=== PATIENT | male | born 1975 | race Caucasian/White ===

== ENCOUNTER 2018-12-23 18:00 | Emergency (ER) | payer OTHER ==
[~2018-12-23] VITALS: Ht 182.9 cm; Wt 90.7 kg
[2018-12-23 18:54] LABS: BASOPHILS ABSOLUTE AUTO 0.08 K/mm3 (0.00-0.23); BASOPHILS PERCENT AUTO 1 % (0-2); EOSINOPHILS ABSOLUTE AUTO 0.31 K/mm3 (0.00-0.68); EOSINOPHILS PERCENT AUTO 3 % (0-6); Hematocrit 45.5 % (37.0-53.0); Hemoglobin 15.6 g/dL (13.5-17.5); IMMATURE GRAN ABSOLUTE AUTO 0.06 K/mm3 (0.00-0.10); IMMATURE GRAN PERCENT AUTO 1 % (0-1); LYMPHOCYTES ABSOLUTE AUTO 3.97 K/mm3 (0.84-5.20); LYMPHOCYTES PERCENT AUTO 36 % (21-46); MONOCYTES ABSOLUTE AUTO 0.68 K/mm3 (0.16-1.47); MONOCYTES PERCENT AUTO 6 % (4-13); Mean Corpuscular HGB 30.1 pg (26.0-34.0); Mean Corpuscular HGB Conc 34.3 g/dL (31.5-36.5); Mean Corpuscular Volume 88 fL (80-100); Mean Platelet Volume 9.6 fL (9.1-12.4); NEUTROPHILS ABSOLUTE AUTO 5.92 K/mm3 (1.96-9.15); NEUTROPHILS PERCENT AUTO 54 % (41-73); Platelet Count 405 K/mm3 (150-400); RDW Coefficient Variation 13.3 % (11.7-14.2); RDW Standard Deviation 42.8 fL (35.1-46.3); Red Blood Cell Count 5.18 M/mm3 (4.30-5.90); White Blood Cell Count 11.02 K/mm3 (4.00-11.30)
[2018-12-23 20:13] LABS: Alanine Aminotransfer (ALT/SGP 94 U/L (12-78); Albumin/Globulin Ratio 0.8 (0.8-1.8); Alk Phos 380 U/L (50-136); Anion Gap 9 mmol/L (6-16); Aspartate Aminotrans (AST/SGOT 47 U/L (12-37); Bilirubin, Total 0.5 mg/dL (0.1-1.0); Blood Urea Nitrogen 23 mg/dL (8-24); Bun/Creatinine Ratio 19.5 (12.0-20.0); CO2, Blood 25 mmol/L (21-32); Calcium, Blood 9.1 mg/dL (8.5-10.1); Chloride, Blood 104 mmol/L (98-108); Creatinine, Blood 1.18 mg/dL (0.60-1.20); Globulin, Blood 4.8 g/dL (2.2-4.0); Glomerular Filtration Rate >60 (60-); Glucose, Blood 107 mg/dL (70-99); Sodium, Blood 138 mmol/L (136-145); Total Protein, Blood 8.8 g/dL (6.4-8.2)
[2018-12-23] MEDS ORDERED: GABA300 (21:43)
[2018-12-23] MEDS ORDERED: CYCL10 (21:44)
[2018-12-23] MEDS ORDERED: OMEPRAZOLE20 MG (21:44)
[2018-12-23] MEDS ORDERED: Lopressor 25 mg25 MG (21:44)
[2018-12-23] MEDS ORDERED: Aspir 8181 MG (21:44)
== END 2018-12-23 23:20 | disposition home or self-care (01) ==
LOC: ER 18:00
PROVIDERS: Physician Assistant
DX: R68.84 Jaw pain (principal); G89.29 Other chronic pain; J02.9 Acute pharyngitis, unspecified; Z79.899 Other long term (current) drug therapy; Z79.82 Long term (current) use of aspirin
CPT/HCPCS: 36415; 71046; 80053; 85025; 85651; 93005; 93010; 99284-25

== ENCOUNTER → 2019-01-31 | Outpatient (CLI) | payer OTHER ==
[~2019-01-31] MED LIST: Aspir 8181 MG; CYCL10; GABA300; Lopressor 25 mg25 MG; OMEPRAZOLE20 MG
[2019-01-31 13:21] LABS: Hematocrit 39.6 % (37.0-53.0); Hemoglobin 14.1 g/dL (13.5-17.5); Mean Corpuscular HGB 30.7 pg (26.0-34.0); Mean Corpuscular HGB Conc 35.6 g/dL (31.5-36.5); Mean Corpuscular Volume 86 fL (80-100); RDW Coefficient Variation 12.8 % (11.7-14.2); RDW Standard Deviation 40.2 fL (35.1-46.3); Red Blood Cell Count 4.59 M/mm3 (4.30-5.90); White Blood Cell Count 8.73 K/mm3 (4.00-11.30)
[2019-01-31 13:23] LABS: Alanine Aminotransfer (ALT/SGP 81 U/L (12-78); Albumin, Blood 3.7 g/dL (3.4-5.0); Albumin/Globulin Ratio 0.9 (0.8-1.8); Alk Phos 302 U/L (40-126); Anion Gap 11 mmol/L (6-16); Aspartate Aminotrans (AST/SGOT 50 U/L (12-37); Bilirubin, Total 0.5 mg/dL (0.1-1.0); Blood Urea Nitrogen 16 mg/dL (8-24); CO2, Blood 23 mmol/L (21-32); Calcium, Blood 9.4 mg/dL (8.5-10.1); Chloride, Blood 104 mmol/L (98-108); Globulin, Blood 4.1 g/dL (2.2-4.0); Glomerular Filtration Rate >60 (60-); Glucose, Blood 113 mg/dL (70-99); Potassium, Blood 4.4 mmol/L (3.5-5.5); Sodium, Blood 138 mmol/L (136-145); Total Protein, Blood 7.8 g/dL (6.4-8.2)
[2019-01-31 14:14] LABS: Mean Platelet Volume 9.4 fL (9.1-12.4); Platelet Count 371 K/mm3 (150-400)
[2019-01-31 14:20] LABS: BAND PERCENT MAN 2 % (0-8); BASOPHILS PERCENT MAN 0 % (0-2); EOSINOPHILS ABSOLUTE MAN 0.61 K/mm3 (0.00-0.68); EOSINOPHILS PERCENT MAN 7 % (0-6); LYMPHOCYTES ABSOLUTE MAN 3.05 K/mm3 (0.84-5.20); LYMPHOCYTES PERCENT MAN 35 % (21-46); MONOCYTES ABSOLUTE MAN 0.26 K/mm3 (0.16-1.47); MONOCYTES PERCENT MAN 3 % (4-13); SEG NEUTROPHILS PERCENT MAN 53 % (41-73); TOTAL CELLS COUNTED 100
== END ==
LOC: LAB SHORT 13:06 → LAB EV 13:06
PROVIDERS: Emergency Medicine
DX: R50.9 Fever, unspecified (principal)
CPT/HCPCS: 80053; 85025; 87040

== ENCOUNTER 2021-01-02 07:53 | Day surgery (SDC) | payer OTHER ==
--- NOTE | 2021-01-02 08:32 | NUR ---
REPORT FROM YAZAN PINEDA.PT REPORTS HAVING YOGURT AT 0700 THIS AM. 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 PHILIP TO CARENE.NKA.ROOM AIR.A&OX4. DENIES ANY NEW CHEST PAIN.
--- NOTE | 2021-01-02 09:02 | NUR ---
Patient up to Ambulate independently. Gait steady. Discharge instructions reviewed with patient. Patient verbalizes understanding. Copy given to patient to take home.AMBULATORY AT DISCHARGE.
== END 2021-01-02 23:53 | disposition home or self-care (01) ==
LOC: ORSCMMR 07:53 → ORD 07:53 → CT 07:53 → ORSCMMR 07:54 → CT 08:00 → ORSCMMR 23:53
DX: I20.8 Other forms of angina pectoris (principal); R00.2 Palpitations; I49.3 Ventricular premature depolarization; F12.90 Cannabis use, unspecified, uncomplicated; F41.9 Anxiety disorder, unspecified
CPT/HCPCS: 75574; Q9967

== ENCOUNTER → 2021-04-09 | Outpatient (CLI) | payer OTHER | END | disposition home or self-care (01) | LOC: LAB 16:56 → LAB SHORT 16:56 | DX: R74.8 Abnormal levels of other serum enzymes (principal) | CPT/HCPCS: 85651; 86140 ==

== ENCOUNTER → 2021-04-11 | Outpatient (CLI) | payer OTHER ==
[2021-04-11 18:09] LABS: Glutamyl Transpeptidase, GGT 700 U/L (15-85); Lactate Dehydrogenase (Ld),Bld 210 U/L (100-240)
[2021-04-12 18:09] LABS: ANA DIRECT Negative (Negative); ANTI-DNA (DS) AB QN 3 IU/mL (0-9); RNP ANTIBODIES <0.2 AI (0.0-0.9); SJOGREN'S ANTI-SS-A <0.2 AI (0.0-0.9); SJOGREN'S ANTI-SS-B <0.2 AI (0.0-0.9); SMITH ANTIBODIES <0.2 AI (0.0-0.9)
== END | disposition home or self-care (01) ==
LOC: LAB SHORT 16:07 → LAB 16:07
PROVIDERS: Nurse Practitioner Family
DX: R74.8 Abnormal levels of other serum enzymes (principal)
CPT/HCPCS: 82105; 82977; 83615; 86225; 86235

== ENCOUNTER 2021-04-24 02:40 | Emergency (ER) | payer OTHER ==
[~2021-04-24] VITALS: Ht 182.9 cm; Wt 77.1 kg
[2021-04-24 03:22] LABS: BASOPHILS ABSOLUTE AUTO 0.07 K/mm3 (0.00-0.23); BASOPHILS PERCENT AUTO 0 % (0-2); EOSINOPHILS ABSOLUTE AUTO 0.03 K/mm3 (0.00-0.68); EOSINOPHILS PERCENT AUTO 0 % (0-6); Hematocrit 49.3 % (37.0-53.0); Hemoglobin 17.2 g/dL (13.5-17.5); IMMATURE GRAN PERCENT AUTO 1 % (0-1); LYMPHOCYTES ABSOLUTE AUTO 1.27 K/mm3 (0.84-5.20); LYMPHOCYTES PERCENT AUTO 8 % (21-46); MONOCYTES ABSOLUTE AUTO 1.02 K/mm3 (0.16-1.47); MONOCYTES PERCENT AUTO 6 % (4-13); Mean Corpuscular HGB 30.6 pg (26.0-34.0); Mean Corpuscular HGB Conc 34.9 g/dL (31.5-36.5); Mean Corpuscular Volume 88 fL (80-100); Mean Platelet Volume 9.7 fL (9.1-12.4); NEUTROPHILS ABSOLUTE AUTO 14.37 K/mm3 (1.96-9.15); NEUTROPHILS PERCENT AUTO 85 % (41-73); Platelet Count 490 K/mm3 (150-400); RDW Standard Deviation 38.5 fL (35.1-46.3); Red Blood Cell Count 5.62 M/mm3 (4.30-5.90); White Blood Cell Count 16.86 K/mm3 (4.00-11.30)
[2021-04-24 03:34] LABS: Alanine Aminotransfer (ALT/SGP 73 U/L (12-78); Albumin, Blood 4.3 g/dL (3.4-5.0); Albumin/Globulin Ratio 0.8 (0.8-1.8); Alk Phos 514 U/L (50-136); Anion Gap 11 mmol/L (6-16); Aspartate Aminotrans (AST/SGOT 45 U/L (12-37); Blood Urea Nitrogen 13 mg/dL (8-24); Bun/Creatinine Ratio 17.3 (12.0-20.0); CO2, Blood 25 mmol/L (21-32); Calcium, Blood 10.4 mg/dL (8.5-10.1); Chloride, Blood 100 mmol/L (98-108); Creatinine, Blood 0.75 mg/dL (0.60-1.20); Globulin, Blood 5.2 g/dL (2.2-4.0); Glomerular Filtration Rate >60 (60-); Glucose, Blood 180 mg/dL (70-99); Potassium, Blood 3.6 mmol/L (3.5-5.5); Sodium, Blood 136 mmol/L (136-145); Total Protein, Blood 9.5 g/dL (6.4-8.2)
[2021-04-24] MEDS ORDERED: ONDA4ODT MM (04:30)
== END 2021-04-24 04:48 | disposition home or self-care (01) ==
LOC: ER 02:40
PROVIDERS: Student in an Organized Health Care Education/Training Program
DX: R11.2 Nausea with vomiting, unspecified (principal); D72.829 Elevated white blood cell count, unspecified
CPT/HCPCS: 36415; 80053; 83690; 85025; 96374; 99284-25; J1790

== ENCOUNTER 2021-06-12 03:08 | Day surgery (SDC) | payer OTHER ==
[~2021-06-12 03:08] MED LIST changes: +ONDA4ODT MM; +OXAYDO5 M1 PO
[2021-06-12] MEDS ORDERED: Ultram50 MG PO (13:18)
[2021-06-12] MEDS ORDERED: HYDROCODONE-AC1 EA15 PO (15:41)
[2021-06-12] MEDS ORDERED: INVANZ INJ (15:42)
[2021-06-12] MEDS ORDERED: Gabapentin600 MG PO (15:53)
[2021-06-12] MEDS ORDERED: ACET500 PO (15:54)
[2021-06-12 17:05] LABS: BASOPHILS ABSOLUTE AUTO 0.08 K/mm3 (0.00-0.23); BASOPHILS PERCENT AUTO 1 % (0-2); EOSINOPHILS ABSOLUTE AUTO 0.52 K/mm3 (0.00-0.68); EOSINOPHILS PERCENT AUTO 5 % (0-6); Hematocrit 38.1 % (37.0-53.0); IMMATURE GRAN ABSOLUTE AUTO 0.03 K/mm3 (0.00-0.10); IMMATURE GRAN PERCENT AUTO 0 % (0-1); LYMPHOCYTES ABSOLUTE AUTO 3.24 K/mm3 (0.84-5.20); LYMPHOCYTES PERCENT AUTO 33 % (21-46); MONOCYTES ABSOLUTE AUTO 0.73 K/mm3 (0.16-1.47); MONOCYTES PERCENT AUTO 8 % (4-13); Mean Corpuscular HGB 30.8 pg (26.0-34.0); Mean Corpuscular HGB Conc 34.1 g/dL (31.5-36.5); Mean Corpuscular Volume 90 fL (80-100); Mean Platelet Volume 11.8 fL (9.1-12.4); NEUTROPHILS ABSOLUTE AUTO 5.13 K/mm3 (1.96-9.15); NEUTROPHILS PERCENT AUTO 53 % (41-73); Platelet Count 277 K/mm3 (150-400); RDW Coefficient Variation 13.5 % (11.7-14.2); RDW Standard Deviation 45.1 fL (35.1-46.3); Red Blood Cell Count 4.22 M/mm3 (4.30-5.90); White Blood Cell Count 9.73 K/mm3 (4.00-11.30)
[2021-06-12 17:33] LABS: Alanine Aminotransfer (ALT/SGP 144 U/L (12-78); Albumin, Blood 3.3 g/dL (3.4-5.0); Albumin/Globulin Ratio 0.9 (0.8-1.8); Alk Phos 536 U/L (50-136); Anion Gap 6 mmol/L (6-16); Aspartate Aminotrans (AST/SGOT 82 U/L (12-37); Bilirubin, Total 0.4 mg/dL (0.1-1.0); Blood Urea Nitrogen 11 mg/dL (8-24); Bun/Creatinine Ratio 16.9 (12.0-20.0); CO2, Blood 28 mmol/L (21-32); Calcium, Blood 8.9 mg/dL (8.5-10.1); Chloride, Blood 105 mmol/L (98-108); Creatinine, Blood 0.65 mg/dL (0.60-1.20); Globulin, Blood 3.7 g/dL (2.2-4.0); Glomerular Filtration Rate >60 (60-); Glucose, Blood 91 mg/dL (70-99); Potassium, Blood 4.2 mmol/L (3.5-5.5); Sodium, Blood 139 mmol/L (136-145)
== END 2021-06-12 16:05 | disposition home or self-care (01) ==
LOC: ATC 03:08
PROVIDERS: Internal Medicine Infectious Disease
DX: M27.2 Inflammatory conditions of jaws (principal)
CPT/HCPCS: 36569; 80053; 85025; 85651; 86140; 96365; C1751; J1335

== ENCOUNTER 2021-06-12 13:02 | Emergency (ER) | payer OTHER ==
[~2021-06-12] VITALS: Ht 182.9 cm; Wt 81.7 kg
[2021-06-12] MEDS ORDERED: Ultram50 MG PO (13:18)
[2021-06-12] MEDS ORDERED: HYDROCODONE-AC1 EA15 PO (15:41)
[2021-06-12] MEDS ORDERED: INVANZ INJ (15:42)
[2021-06-12] MEDS ORDERED: Gabapentin600 MG PO (15:53)
[2021-06-12] MEDS ORDERED: ACET500 PO (15:54)
== END 2021-06-12 13:27 | disposition home or self-care (01) ==
LOC: ER 13:02
DX: K08.89 Other specified disorders of teeth and supporting structures (principal); G89.29 Other chronic pain
CPT/HCPCS: 99283; A9270

== ENCOUNTER 2021-06-13 01:22 | Day surgery (SDC) | payer OTHER ==
[~2021-06-13 01:22] MED LIST changes: +ACET500 PO; +Gabapentin600 MG PO; +HYDROCODONE-AC1 EA15 PO; +INVANZ INJ; +Ultram50 MG PO
[2021-06-14] MEDS ORDERED: OXYC5 PO (14:27)
== END 2021-06-13 11:25 | disposition home or self-care (01) ==
LOC: ATC 01:22
DX: M27.2 Inflammatory conditions of jaws (principal); E78.00 Pure hypercholesterolemia, unspecified; M27.69 Other endosseous dental implant failure
CPT/HCPCS: 96365; J1335

== ENCOUNTER 2021-06-14 05:29 | Day surgery (SDC) | payer OTHER ==
[2021-06-14] MEDS ORDERED: OXYC5 PO (14:27)
== END 2021-06-14 14:47 | disposition home or self-care (01) ==
LOC: ATC 05:29
DX: M27.2 Inflammatory conditions of jaws (principal)
CPT/HCPCS: J1335

== ENCOUNTER 2021-06-15 10:23 | Day surgery (SDC) | payer OTHER ==
[~2021-06-15 10:23] MED LIST changes: +OXYC5 PO
== END 2021-06-15 11:01 | disposition home or self-care (01) ==
LOC: ATC 10:23
DX: M27.2 Inflammatory conditions of jaws (principal); M27.69 Other endosseous dental implant failure
CPT/HCPCS: J1335

== ENCOUNTER 2021-06-16 10:34 | Day surgery (SDC) | payer OTHER | END 2021-06-16 11:10 | disposition home or self-care (01) | LOC: ATC 10:34 | DX: M27.2 Inflammatory conditions of jaws (principal) | CPT/HCPCS: J1335 ==

== ENCOUNTER 2021-06-17 14:47 | Day surgery (SDC) | payer OTHER | END 2021-06-17 14:49 | disposition home or self-care (01) | LOC: ATC 14:47 | DX: M27.2 Inflammatory conditions of jaws (principal) | CPT/HCPCS: J1335 ==

== ENCOUNTER 2021-06-18 04:10 | Day surgery (SDC) | payer OTHER ==
[2021-06-18 15:54] LABS: BASOPHILS PERCENT AUTO 1 % (0-2); EOSINOPHILS ABSOLUTE AUTO 0.38 K/mm3 (0.00-0.68); EOSINOPHILS PERCENT AUTO 4 % (0-6); Hematocrit 42.5 % (37.0-53.0); Hemoglobin 14.3 g/dL (13.5-17.5); IMMATURE GRAN ABSOLUTE AUTO 0.03 K/mm3 (0.00-0.10); IMMATURE GRAN PERCENT AUTO 0 % (0-1); LYMPHOCYTES ABSOLUTE AUTO 3.16 K/mm3 (0.84-5.20); LYMPHOCYTES PERCENT AUTO 32 % (21-46); MONOCYTES ABSOLUTE AUTO 0.91 K/mm3 (0.16-1.47); MONOCYTES PERCENT AUTO 9 % (4-13); Mean Corpuscular HGB 30.6 pg (26.0-34.0); Mean Corpuscular HGB Conc 33.6 g/dL (31.5-36.5); Mean Corpuscular Volume 91 fL (80-100); Mean Platelet Volume 10.8 fL (9.1-12.4); NEUTROPHILS ABSOLUTE AUTO 5.41 K/mm3 (1.96-9.15); NEUTROPHILS PERCENT AUTO 54 % (41-73); Platelet Count 337 K/mm3 (150-400); RDW Coefficient Variation 13.5 % (11.7-14.2); RDW Standard Deviation 45.3 fL (35.1-46.3); Red Blood Cell Count 4.67 M/mm3 (4.30-5.90); White Blood Cell Count 9.99 K/mm3 (4.00-11.30)
[2021-06-18 16:05] LABS: Alanine Aminotransfer (ALT/SGP 133 U/L (12-78); Albumin, Blood 3.5 g/dL (3.4-5.0); Albumin/Globulin Ratio 0.9 (0.8-1.8); Alk Phos 558 U/L (50-136); Anion Gap 7 mmol/L (6-16); Aspartate Aminotrans (AST/SGOT 66 U/L (12-37); Bilirubin, Total 0.4 mg/dL (0.1-1.0); Blood Urea Nitrogen 11 mg/dL (8-24); Bun/Creatinine Ratio 16.3 (12.0-20.0); CO2, Blood 28 mmol/L (21-32); Calcium, Blood 9.2 mg/dL (8.5-10.1); Chloride, Blood 104 mmol/L (98-108); Creatinine, Blood 0.67 mg/dL (0.60-1.20); Glomerular Filtration Rate >60 (60-); Glucose, Blood 90 mg/dL (70-99); Potassium, Blood 4.3 mmol/L (3.5-5.5); Sodium, Blood 139 mmol/L (136-145); Total Protein, Blood 7.5 g/dL (6.4-8.2)
[2021-06-18 17:15] LABS: International Normalized Ratio 0.99; Prothrombin Time Results 10.4 Sec (9.7-11.5)
== END 2021-06-18 15:00 | disposition home or self-care (01) ==
LOC: ATC 04:10
PROVIDERS: Internal Medicine Gastroenterology; Internal Medicine Infectious Disease
DX: M27.2 Inflammatory conditions of jaws (principal); D50.0 Iron deficiency anemia secondary to blood loss (chronic)
CPT/HCPCS: 80053; 85025; 85610; 85730; J1335

== ENCOUNTER 2021-06-20 00:20 | Day surgery (SDC) | payer OTHER | END 2021-06-20 14:31 | disposition home or self-care (01) | LOC: ATC 00:20 | DX: M27.2 Inflammatory conditions of jaws (principal) | CPT/HCPCS: 96365; J1335 ==

== ENCOUNTER 2021-06-21 00:21 | Day surgery (SDC) | payer OTHER | END 2021-06-21 14:40 | disposition home or self-care (01) | LOC: ATC 00:21 | DX: M27.2 Inflammatory conditions of jaws (principal) | CPT/HCPCS: J1335 ==

== ENCOUNTER 2021-06-22 10:35 | Day surgery (SDC) | payer OTHER | END 2021-06-22 10:56 | disposition home or self-care (01) | LOC: ATC 10:35 | DX: M27.2 Inflammatory conditions of jaws (principal) | CPT/HCPCS: 96374; J1335 ==

== ENCOUNTER 2021-06-23 10:49 | Day surgery (SDC) | payer OTHER | END 2021-06-23 12:00 | disposition home or self-care (01) | LOC: ATC 10:49 | DX: M27.2 Inflammatory conditions of jaws (principal); M27.69 Other endosseous dental implant failure | CPT/HCPCS: 96365; J1335 ==

== ENCOUNTER 2021-06-25 04:51 | Day surgery (SDC) | payer OTHER | END 2021-06-25 14:22 | disposition home or self-care (01) | LOC: ATC 04:51 | DX: M27.2 Inflammatory conditions of jaws (principal); M27.69 Other endosseous dental implant failure | CPT/HCPCS: J1335 ==

== ENCOUNTER 2021-06-27 01:44 | Day surgery (SDC) | payer OTHER ==
[2021-07-17] MEDS ORDERED: BUPRENORPHINE HC2 MG SL (14:47)
[2021-09-24] MEDS ORDERED: GABA300 PO (14:54)
[2021-09-24] MEDS ORDERED: PANT40 PO (14:55)
[2021-09-24] MEDS ORDERED: UNK ANTIBIOTIC PO (14:56)
[2021-10-30] MEDS ORDERED: Norco 5-325 Ta1 EACH PO (09:44)
[2021-11-05] MEDS ORDERED: [UNRECOGNIZED DRUG - OTHER] PO (11:39)
== END 2021-06-27 14:38 | disposition home or self-care (01) ==
LOC: ATC 01:44
DX: M27.2 Inflammatory conditions of jaws (principal); M27.69 Other endosseous dental implant failure
CPT/HCPCS: 96365; J1335

== ENCOUNTER 2021-06-28 05:35 | Day surgery (SDC) | payer OTHER | END 2021-06-28 14:47 | disposition home or self-care (01) | LOC: ATC 05:35 | DX: M27.2 Inflammatory conditions of jaws (principal); E78.00 Pure hypercholesterolemia, unspecified | CPT/HCPCS: 96365 ==

== ENCOUNTER 2021-06-29 10:26 | Day surgery (SDC) | payer OTHER | END 2021-06-29 10:55 | disposition home or self-care (01) | LOC: ATC 10:26 | DX: M27.2 Inflammatory conditions of jaws (principal); E78.00 Pure hypercholesterolemia, unspecified | CPT/HCPCS: J1335 ==

== ENCOUNTER 2021-06-30 10:32 | Day surgery (SDC) | payer OTHER ==
[2021-07-17] MEDS ORDERED: BUPRENORPHINE HC2 MG SL (14:47)
== END 2021-06-30 11:14 | disposition home or self-care (01) ==
LOC: ATC 10:32
DX: M27.2 Inflammatory conditions of jaws (principal); M27.69 Other endosseous dental implant failure
CPT/HCPCS: 96365; J1335

== ENCOUNTER 2021-07-01 01:18 | Day surgery (SDC) | payer OTHER | END 2021-07-01 14:22 | disposition home or self-care (01) | LOC: ATC 01:18 | DX: M27.2 Inflammatory conditions of jaws (principal) | CPT/HCPCS: J1335 ==

== ENCOUNTER 2021-07-03 04:55 | Day surgery (SDC) | payer OTHER ==
[2021-07-03 15:38] LABS: BASOPHILS ABSOLUTE AUTO 0.09 K/mm3 (0.00-0.23); BASOPHILS PERCENT AUTO 1 % (0-2); EOSINOPHILS ABSOLUTE AUTO 0.44 K/mm3 (0.00-0.68); EOSINOPHILS PERCENT AUTO 5 % (0-6); Hematocrit 40.4 % (37.0-53.0); Hemoglobin 13.6 g/dL (13.5-17.5); IMMATURE GRAN ABSOLUTE AUTO 0.03 K/mm3 (0.00-0.10); IMMATURE GRAN PERCENT AUTO 0 % (0-1); LYMPHOCYTES ABSOLUTE AUTO 3.74 K/mm3 (0.84-5.20); LYMPHOCYTES PERCENT AUTO 42 % (21-46); MONOCYTES ABSOLUTE AUTO 0.57 K/mm3 (0.16-1.47); MONOCYTES PERCENT AUTO 6 % (4-13); Mean Corpuscular HGB 30.5 pg (26.0-34.0); Mean Corpuscular HGB Conc 33.7 g/dL (31.5-36.5); Mean Corpuscular Volume 91 fL (80-100); Mean Platelet Volume 10.8 fL (9.1-12.4); NEUTROPHILS PERCENT AUTO 45 % (41-73); Platelet Count 348 K/mm3 (150-400); RDW Coefficient Variation 12.9 % (11.7-14.2); RDW Standard Deviation 42.7 fL (35.1-46.3); Red Blood Cell Count 4.46 M/mm3 (4.30-5.90); White Blood Cell Count 8.87 K/mm3 (4.00-11.30)
[2021-07-03 16:22] LABS: Alanine Aminotransfer (ALT/SGP 134 U/L (12-78); Albumin, Blood 3.5 g/dL (3.4-5.0); Albumin/Globulin Ratio 0.9 (0.8-1.8); Alk Phos 498 U/L (50-136); Anion Gap 6 mmol/L (6-16); Aspartate Aminotrans (AST/SGOT 86 U/L (12-37); Bilirubin, Total 0.4 mg/dL (0.1-1.0); Blood Urea Nitrogen 14 mg/dL (8-24); CO2, Blood 27 mmol/L (21-32); Chloride, Blood 106 mmol/L (98-108); Creatinine, Blood 0.74 mg/dL (0.60-1.20); Globulin, Blood 3.9 g/dL (2.2-4.0); Glomerular Filtration Rate >60 (60-); Glucose, Blood 112 mg/dL (70-99); Potassium, Blood 4.3 mmol/L (3.5-5.5); Sodium, Blood 139 mmol/L (136-145); Total Protein, Blood 7.4 g/dL (6.4-8.2)
== END 2021-07-03 14:34 | disposition home or self-care (01) ==
LOC: ATC 04:55
PROVIDERS: Internal Medicine Infectious Disease
DX: M27.2 Inflammatory conditions of jaws (principal)
CPT/HCPCS: 80053; 85025; 96365; J1335

== ENCOUNTER 2021-07-04 04:59 | Day surgery (SDC) | payer OTHER | END 2021-07-04 12:05 | disposition home or self-care (01) | LOC: ATC 04:59 | DX: M27.2 Inflammatory conditions of jaws (principal); M27.69 Other endosseous dental implant failure | CPT/HCPCS: 96365; J1335 ==

== ENCOUNTER 2021-07-07 04:52 | Day surgery (SDC) | payer OTHER | END 2021-07-07 11:07 | disposition home or self-care (01) | LOC: ATC 04:52 | DX: M27.2 Inflammatory conditions of jaws (principal); M27.69 Other endosseous dental implant failure | CPT/HCPCS: J1335 ==

== ENCOUNTER 2021-07-08 03:56 | Day surgery (SDC) | payer OTHER | END 2021-07-08 14:41 | disposition home or self-care (01) | LOC: ATC 03:56 | DX: M27.2 Inflammatory conditions of jaws (principal) | CPT/HCPCS: J1335 ==

== ENCOUNTER 2021-07-10 01:35 | Day surgery (SDC) | payer OTHER ==
[2021-07-10 15:15] LABS: BASOPHILS ABSOLUTE AUTO 0.08 K/mm3 (0.00-0.23); BASOPHILS PERCENT AUTO 1 % (0-2); EOSINOPHILS ABSOLUTE AUTO 0.53 K/mm3 (0.00-0.68); EOSINOPHILS PERCENT AUTO 5 % (0-6); Hematocrit 39.7 % (37.0-53.0); Hemoglobin 13.8 g/dL (13.5-17.5); IMMATURE GRAN ABSOLUTE AUTO 0.03 K/mm3 (0.00-0.10); IMMATURE GRAN PERCENT AUTO 0 % (0-1); LYMPHOCYTES ABSOLUTE AUTO 3.96 K/mm3 (0.84-5.20); LYMPHOCYTES PERCENT AUTO 38 % (21-46); MONOCYTES ABSOLUTE AUTO 0.75 K/mm3 (0.16-1.47); MONOCYTES PERCENT AUTO 7 % (4-13); Mean Corpuscular HGB 31.2 pg (26.0-34.0); Mean Corpuscular HGB Conc 34.8 g/dL (31.5-36.5); Mean Corpuscular Volume 90 fL (80-100); Mean Platelet Volume 10.3 fL (9.1-12.4); NEUTROPHILS ABSOLUTE AUTO 5.09 K/mm3 (1.96-9.15); NEUTROPHILS PERCENT AUTO 49 % (41-73); Platelet Count 325 K/mm3 (150-400); RDW Coefficient Variation 12.7 % (11.7-14.2); RDW Standard Deviation 42.1 fL (35.1-46.3); Red Blood Cell Count 4.42 M/mm3 (4.30-5.90); White Blood Cell Count 10.44 K/mm3 (4.00-11.30)
[2021-07-10 15:39] LABS: Alanine Aminotransfer (ALT/SGP 95 U/L (12-78); Albumin, Blood 3.4 g/dL (3.4-5.0); Albumin/Globulin Ratio 0.9 (0.8-1.8); Alk Phos 413 U/L (50-136); Anion Gap 5 mmol/L (6-16); Aspartate Aminotrans (AST/SGOT 58 U/L (12-37); Bilirubin, Total 0.4 mg/dL (0.1-1.0); Blood Urea Nitrogen 13 mg/dL (8-24); Bun/Creatinine Ratio 18.4 (12.0-20.0); C-REACTIVE PROTEIN, EXT RANGE 0.739 mg/dL (0.000-0.300); CO2, Blood 29 mmol/L (21-32); Calcium, Blood 8.7 mg/dL (8.5-10.1); Chloride, Blood 104 mmol/L (98-108); Creatinine, Blood 0.71 mg/dL (0.60-1.20); Globulin, Blood 3.9 g/dL (2.2-4.0); Glomerular Filtration Rate >60 (60-); Glucose, Blood 84 mg/dL (70-99); Potassium, Blood 4.1 mmol/L (3.5-5.5); Sodium, Blood 138 mmol/L (136-145); Total Protein, Blood 7.3 g/dL (6.4-8.2)
[2021-07-17] MEDS ORDERED: BUPRENORPHINE HC2 MG SL (14:47)
== END 2021-07-10 14:50 | disposition home or self-care (01) ==
LOC: ATC 01:35
PROVIDERS: Internal Medicine Infectious Disease
DX: M27.2 Inflammatory conditions of jaws (principal); M27.69 Other endosseous dental implant failure
CPT/HCPCS: 80053; 85025; 85651; 86140; 96365; J1335

== ENCOUNTER 2021-07-11 01:05 | Day surgery (SDC) | payer OTHER | END 2021-07-11 14:51 | disposition home or self-care (01) | LOC: ATC 01:05 | DX: M27.2 Inflammatory conditions of jaws (principal); Z79.899 Other long term (current) drug therapy | CPT/HCPCS: 96365; J1335 ==

== ENCOUNTER 2021-07-12 05:41 | Day surgery (SDC) | payer OTHER | END 2021-07-12 14:45 | disposition home or self-care (01) | LOC: ATC 05:41 | DX: M27.2 Inflammatory conditions of jaws (principal) | CPT/HCPCS: J1335 ==

== ENCOUNTER 2021-07-13 08:00 | Day surgery (SDC) | payer OTHER ==
[2021-07-17] MEDS ORDERED: BUPRENORPHINE HC2 MG SL (14:47)
== END 2021-07-13 23:59 | disposition home or self-care (01) ==
LOC: ATC 08:00
DX: M27.2 Inflammatory conditions of jaws (principal); M27.69 Other endosseous dental implant failure
CPT/HCPCS: 96365; J1335

== ENCOUNTER 2021-07-14 01:18 | Day surgery (SDC) | payer OTHER ==
[2021-07-15] MEDS ORDERED: URSODIOL 300 MG CAP PO (14:23)
[2021-07-17] MEDS ORDERED: BUPRENORPHINE HC2 MG SL (14:47)
== END 2021-07-14 08:29 | disposition home or self-care (01) ==
LOC: ATC 01:18
DX: M27.2 Inflammatory conditions of jaws (principal)
CPT/HCPCS: 96365; J1335

== ENCOUNTER 2021-07-15 02:51 | Day surgery (SDC) | payer OTHER ==
[2021-07-15] MEDS ORDERED: URSODIOL 300 MG CAP PO (14:23)
[2021-07-17] MEDS ORDERED: BUPRENORPHINE HC2 MG SL (14:47)
== END 2021-07-15 14:39 | disposition home or self-care (01) ==
LOC: ATC 02:51
DX: M27.2 Inflammatory conditions of jaws (principal)
CPT/HCPCS: J1335

== ENCOUNTER 2021-07-18 00:21 | Day surgery (SDC) | payer OTHER ==
[~2021-07-18 00:21] MED LIST changes: +BUPRENORPHINE HC2 MG SL; +URSODIOL 300 MG CAP PO
== END 2021-07-18 14:50 | disposition home or self-care (01) ==
LOC: ATC 00:21
DX: M27.2 Inflammatory conditions of jaws (principal)
CPT/HCPCS: 96365; J1335

== ENCOUNTER 2021-07-19 03:49 | Day surgery (SDC) | payer OTHER | END 2021-07-19 14:32 | disposition home or self-care (01) | LOC: ATC 03:49 | DX: M27.2 Inflammatory conditions of jaws (principal) | CPT/HCPCS: J1335 ==

== ENCOUNTER 2021-07-20 05:56 | Day surgery (SDC) | payer OTHER | END 2021-07-20 11:11 | disposition home or self-care (01) | LOC: ATC 05:56 | DX: M27.2 Inflammatory conditions of jaws (principal) | CPT/HCPCS: J1335 ==

== ENCOUNTER 2021-07-21 03:02 | Day surgery (SDC) | payer OTHER | END 2021-07-21 10:58 | disposition home or self-care (01) | LOC: ATC 03:02 | DX: M27.2 Inflammatory conditions of jaws (principal) | CPT/HCPCS: J1335 ==

== ENCOUNTER 2021-07-22 03:29 | Day surgery (SDC) | payer OTHER ==
--- NOTE | 2021-07-22 14:22 | NUR ---
CALLED [employer] [facility] AND REQUESTED INSTRUCTION FROM DR. REAVES RE: PT'S PICC LINE. SHOULD WE KEEP IT OR REMOVE IT AFTER HIS ANTIBIOTICS ARE COMPLETED TOMORROW, 07/23/21. [facility] STAFF TO CALL BACK NIRMAL WITH INSTRUCTIONS.
== END 2021-07-22 14:29 | disposition home or self-care (01) ==
LOC: ATC 03:29
DX: M27.2 Inflammatory conditions of jaws (principal)
CPT/HCPCS: J1335

== ENCOUNTER → 2021-07-30 | Outpatient (CLI) | payer OTHER | LOC: LAB SHORT 11:15 → LAB 11:15 | DX: R30.9 Painful micturition, unspecified (principal) | CPT/HCPCS: 87086 ==

== ENCOUNTER → 2021-08-21 | Outpatient (CLI) | payer OTHER ==
[2021-08-21 11:50] LABS: Source, Urine Clean Catch
[2021-08-21 18:10] LABS: Bacteria Mod /hpf; Red Blood Cells, Urine Not Seen /hpf (0-2); Squamous Epithelial Cells Not Seen /hpf (Few); White Blood Cells, Urine 0-2 /hpf (0-5)
== END ==
LOC: LAB SHORT 11:48
PROVIDERS: Family Medicine
DX: N41.0 Acute prostatitis (principal)
CPT/HCPCS: 81015

== ENCOUNTER 2021-10-15 12:49 | Day surgery (SDC) | payer OTHER ==
[~2021-10-15 12:49] MED LIST changes: +GABA300 PO; +PANT40 PO; +UNK ANTIBIOTIC PO
== END 2021-10-15 23:34 | disposition home or self-care (01) ==
LOC: WOUND 12:49
DX: M27.2 Inflammatory conditions of jaws (principal)
CPT/HCPCS: G0463

== ENCOUNTER 2021-11-12 08:22 | Day surgery (SDC) | payer OTHER ==
[~2021-11-12] VITALS: Ht 182.9 cm; Wt 79.6 kg
[~2021-11-12 08:22] MED LIST changes: +Norco 5-325 Ta1 EACH PO; +[UNRECOGNIZED DRUG - OTHER] PO
--- NOTE | 2021-11-12 15:30 | NUR ---
PATIENT ARRIVED TO ROOM FROM PACU. A&O X4, VSS ON RA. AQUACEL IN PLACE TO L HIP, C/D/I. POLAR PACK IN PLACE. UNABLE TO WIGGLE TOES AT THIS TIME. CALL LIGHT IN REACH.
--- NOTE | 2021-11-12 18:21 | NUR ---
SHIFT SUMMARY VSS ON RA SINCE ARRIVAL TO FLOOR, BRADYCARDIC AT TIMES, REMAINS 50-60'S CONSISTENTLY. FULL SENSATION RETURNED TO BILATERAL LOWER EXTREMITIES, AMBULATED TO BR & UP TO CHAIR FOR DINNER, 1P SBA W/ FWW & GB. EATING, DRINKING, & VOIDING WELL. WILL CONTINUE TO MONITOR & REPORT TO ONCOMING RN.
[2021-11-13 07:35] LABS: Calcium, Blood 8.7 mg/dL (8.5-10.1); Creatinine, Blood 0.65 mg/dL (0.60-1.20)
[2021-11-13 07:41] LABS: BASOPHILS ABSOLUTE AUTO 0.06 K/mm3 (0.00-0.23); BASOPHILS PERCENT AUTO 0 % (0-2); EOSINOPHILS ABSOLUTE AUTO 0.16 K/mm3 (0.00-0.68); EOSINOPHILS PERCENT AUTO 1 % (0-6); Hematocrit 37.7 % (37.0-53.0); Hemoglobin 12.5 g/dL (13.5-17.5); Mean Corpuscular HGB 30.1 pg (26.0-34.0); Mean Corpuscular HGB Conc 33.2 g/dL (31.5-36.5); Mean Corpuscular Volume 91 fL (80-100); Mean Platelet Volume 10.3 fL (9.1-12.4); Platelet Count 280 K/mm3 (150-400); RDW Coefficient Variation 12.5 % (11.7-14.2); Red Blood Cell Count 4.15 M/mm3 (4.30-5.90); White Blood Cell Count 17.03 K/mm3 (4.00-11.30)
[2021-11-13 07:48] LABS: IMMATURE GRAN ABSOLUTE AUTO 0.08 K/mm3 (0.00-0.10); IMMATURE GRAN PERCENT AUTO 1 % (0-1); LYMPHOCYTES ABSOLUTE AUTO 4.04 K/mm3 (0.84-5.20); LYMPHOCYTES PERCENT AUTO 24 % (21-46); MONOCYTES ABSOLUTE AUTO 1.15 K/mm3 (0.16-1.47); MONOCYTES PERCENT AUTO 7 % (4-13); NEUTROPHILS ABSOLUTE AUTO 11.54 K/mm3 (1.96-9.15); NEUTROPHILS PERCENT AUTO 68 % (41-73)
[2021-11-13] MEDS ORDERED: ASPI81CH PO (09:02)
[2021-11-13] MEDS ORDERED: Percocet 5-3251 EACH PO (09:03)
--- NOTE | 2021-11-13 09:46 | NUR ---
DISCHARGE SUMMARY PT A&OX4, VSS/RA, AMB W/FWW, UP TO CHAIR, PAIN MANAGED, JOSE PO, VOIDING WELL. LEFT FLOOR VIA WC WITH RN TO GO HOME WITH , WITH DC INSTRUCTIONS AND 1 NARC SCRIPT. DC INS PROVIDED, PT REP UNDERSTANDING THOSE INSTRUCTIONS.
== END 2021-11-13 09:30 | disposition home or self-care (01) ==
LOC: ORSCMMR 08:22 → ORD 10:00 → ORSCMMR 10:00 → SURS 15:30 → ORSCMMR 11-13 09:30 → SURS 11-13 09:30
PROVIDERS: Orthopaedic Surgery
PROC: 0SRB0JZ Replacement of Left Hip Joint with Synthetic Substitute, Open Approach (ICD-10-PCS; principal; 2021-11-12 10:00)
DX: M16.12 Unilateral primary osteoarthritis, left hip (principal); M25.852 Other specified joint disorders, left hip; K21.9 Gastro-esophageal reflux disease without esophagitis; Z79.899 Other long term (current) drug therapy
CPT/HCPCS: 36415; 72170; 80048; 85025; 97110; 97116; 97161; A9270; C1776; J0171; J0690; J0735; J1100; J1170; J1885; J2250; J2405; J2704; J2795; J3010; J3370; J7050; J7060; J7120

== ENCOUNTER → 2021-12-04 | Day surgery (SDC) | payer OTHER ==
[~2021-12-04] MED LIST changes: +ASPI81CH PO; +Percocet 5-3251 EACH PO
== END ==
LOC: WOUND 02:11
DX: M27.2 Inflammatory conditions of jaws (principal); M86.68 Other chronic osteomyelitis, other site
CPT/HCPCS: G0463

== ENCOUNTER 2022-01-07 04:39 | Day surgery (SDC) | payer OTHER | END 2022-01-07 23:56 | disposition home or self-care (01) | LOC: HBO 04:39 | DX: M86.68 Other chronic osteomyelitis, other site (principal); M27.2 Inflammatory conditions of jaws | CPT/HCPCS: G0277 ==

== ENCOUNTER 2022-01-08 04:23 | Day surgery (SDC) | payer OTHER | END 2022-01-08 23:45 | LOC: HBO 04:23 | DX: M27.2 Inflammatory conditions of jaws (principal); M86.68 Other chronic osteomyelitis, other site | CPT/HCPCS: G0463 ==

== ENCOUNTER 2022-01-09 00:55 | Day surgery (SDC) | payer OTHER | END 2022-01-09 23:59 | disposition home or self-care (01) | LOC: HBO 00:55 | DX: M27.2 Inflammatory conditions of jaws (principal); M86.68 Other chronic osteomyelitis, other site | CPT/HCPCS: G0277 ==

== ENCOUNTER 2022-01-10 03:08 | Day surgery (SDC) | payer OTHER | END 2022-01-10 23:39 | disposition home or self-care (01) | LOC: HBO 03:08 | DX: M27.2 Inflammatory conditions of jaws (principal); M86.68 Other chronic osteomyelitis, other site | CPT/HCPCS: G0277 ==

== ENCOUNTER 2022-01-13 07:12 | Day surgery (SDC) | payer OTHER | END 2022-01-13 23:07 | disposition home or self-care (01) | LOC: HBO 07:12 | DX: M27.2 Inflammatory conditions of jaws (principal); M86.68 Other chronic osteomyelitis, other site | CPT/HCPCS: G0277 ==

== ENCOUNTER 2022-01-14 03:17 | Day surgery (SDC) | payer OTHER | END 2022-01-14 23:56 | disposition home or self-care (01) | LOC: HBO 03:17 | DX: M27.2 Inflammatory conditions of jaws (principal); M86.68 Other chronic osteomyelitis, other site | CPT/HCPCS: G0277 ==

== ENCOUNTER 2022-01-15 02:33 | Day surgery (SDC) | payer OTHER | END 2022-01-17 22:49 | disposition home or self-care (01) | LOC: HBO 02:33 | DX: M86.68 Other chronic osteomyelitis, other site (principal); M27.2 Inflammatory conditions of jaws | CPT/HCPCS: G0277 ==

== ENCOUNTER 2022-01-16 01:36 | Day surgery (SDC) | payer OTHER | END 2022-01-17 22:50 | disposition home or self-care (01) | LOC: HBO 01:36 | DX: M27.2 Inflammatory conditions of jaws (principal); M86.68 Other chronic osteomyelitis, other site | CPT/HCPCS: G0277 ==

== ENCOUNTER 2022-01-20 05:02 | Day surgery (SDC) | payer OTHER | END 2022-01-20 23:33 | disposition home or self-care (01) | LOC: HBO 05:02 | DX: M86.68 Other chronic osteomyelitis, other site (principal); M27.2 Inflammatory conditions of jaws | CPT/HCPCS: G0277 ==

== ENCOUNTER 2022-01-21 02:50 | Day surgery (SDC) | payer OTHER | END 2022-01-21 22:51 | disposition home or self-care (01) | LOC: HBO 02:50 | DX: M27.2 Inflammatory conditions of jaws (principal); M86.68 Other chronic osteomyelitis, other site | CPT/HCPCS: G0277 ==

== ENCOUNTER 2022-01-22 00:55 | Day surgery (SDC) | payer OTHER | END 2022-01-22 23:40 | disposition home or self-care (01) | LOC: HBO 00:55 | DX: M86.68 Other chronic osteomyelitis, other site (principal); M27.2 Inflammatory conditions of jaws | CPT/HCPCS: G0277 ==

== ENCOUNTER 2022-01-23 01:53 | Day surgery (SDC) | payer OTHER | END 2022-01-23 23:53 | disposition home or self-care (01) | LOC: HBO 01:53 | DX: M27.2 Inflammatory conditions of jaws (principal); M86.68 Other chronic osteomyelitis, other site | CPT/HCPCS: G0277 ==

== ENCOUNTER 2022-01-24 01:17 | Day surgery (SDC) | payer OTHER | END 2022-01-24 23:18 | disposition home or self-care (01) | LOC: HBO 01:17 | DX: M27.2 Inflammatory conditions of jaws (principal); M86.68 Other chronic osteomyelitis, other site | CPT/HCPCS: G0277 ==

== ENCOUNTER 2022-01-27 01:56 | Day surgery (SDC) | payer OTHER | END 2022-01-27 23:25 | disposition home or self-care (01) | LOC: HBO 01:56 | DX: M86.68 Other chronic osteomyelitis, other site (principal); M27.2 Inflammatory conditions of jaws | CPT/HCPCS: G0277 ==

== ENCOUNTER 2022-01-28 01:00 | Day surgery (SDC) | payer OTHER | END 2022-01-29 00:38 | disposition home or self-care (01) | LOC: HBO 01:00 | DX: M27.2 Inflammatory conditions of jaws (principal); M86.68 Other chronic osteomyelitis, other site | CPT/HCPCS: G0277 ==

== ENCOUNTER 2022-01-29 12:00 | Day surgery (SDC) | payer OTHER | END 2022-01-30 23:48 | disposition home or self-care (01) | LOC: HBO 12:00 | DX: M27.2 Inflammatory conditions of jaws (principal); M86.68 Other chronic osteomyelitis, other site | CPT/HCPCS: G0277 ==

== ENCOUNTER 2022-01-30 01:58 | Day surgery (SDC) | payer OTHER | END 2022-01-30 23:48 | disposition home or self-care (01) | LOC: HBO 01:58 | DX: M86.68 Other chronic osteomyelitis, other site (principal); M27.2 Inflammatory conditions of jaws | CPT/HCPCS: G0277 ==

== ENCOUNTER 2022-01-31 02:27 | Day surgery (SDC) | payer OTHER | END 2022-01-31 23:38 | disposition home or self-care (01) | LOC: HBO 02:27 | DX: M27.2 Inflammatory conditions of jaws (principal); M86.68 Other chronic osteomyelitis, other site | CPT/HCPCS: G0277 ==

== ENCOUNTER 2022-02-03 01:07 | Day surgery (SDC) | payer OTHER | END 2022-02-03 23:55 | disposition home or self-care (01) | LOC: HBO 01:07 | DX: M27.2 Inflammatory conditions of jaws (principal); M86.68 Other chronic osteomyelitis, other site | CPT/HCPCS: G0277 ==

== ENCOUNTER 2022-02-04 00:39 | Day surgery (SDC) | payer OTHER | END 2022-02-04 23:59 | disposition home or self-care (01) | LOC: HBO 00:39 | DX: M27.2 Inflammatory conditions of jaws (principal); M86.68 Other chronic osteomyelitis, other site | CPT/HCPCS: G0277 ==

== ENCOUNTER 2022-02-05 08:00 | Day surgery (SDC) | payer OTHER | END 2022-02-05 23:59 | disposition home or self-care (01) | LOC: WOUND 08:00 | DX: M27.2 Inflammatory conditions of jaws (principal) | CPT/HCPCS: G0463 ==

== ENCOUNTER 2022-02-05 08:00 | Day surgery (SDC) | payer OTHER | END 2022-02-05 23:59 | disposition home or self-care (01) | LOC: HBO 08:00 | DX: M27.2 Inflammatory conditions of jaws (principal); M86.68 Other chronic osteomyelitis, other site | CPT/HCPCS: G0277 ==

== ENCOUNTER 2022-02-06 01:48 | Day surgery (SDC) | payer OTHER | END 2022-02-06 22:46 | disposition home or self-care (01) | LOC: HBO 01:48 | DX: M27.2 Inflammatory conditions of jaws (principal); M86.68 Other chronic osteomyelitis, other site | CPT/HCPCS: G0277 ==

== ENCOUNTER 2022-02-07 01:56 | Day surgery (SDC) | payer OTHER | END 2022-02-07 23:36 | disposition home or self-care (01) | LOC: HBO 01:56 | DX: M27.2 Inflammatory conditions of jaws (principal); M86.68 Other chronic osteomyelitis, other site | CPT/HCPCS: G0277 ==

== ENCOUNTER 2022-02-10 03:37 | Day surgery (SDC) | payer OTHER | END 2022-02-10 23:33 | disposition home or self-care (01) | LOC: HBO 03:37 | DX: M86.68 Other chronic osteomyelitis, other site (principal); M27.2 Inflammatory conditions of jaws | CPT/HCPCS: G0277 ==

== ENCOUNTER 2022-02-11 00:39 | Day surgery (SDC) | payer OTHER | END 2022-02-11 23:08 | disposition home or self-care (01) | LOC: HBO 00:39 | DX: M27.2 Inflammatory conditions of jaws (principal); M86.68 Other chronic osteomyelitis, other site | CPT/HCPCS: G0277 ==

== ENCOUNTER 2022-02-12 00:54 | Day surgery (SDC) | payer OTHER | END 2022-02-12 23:54 | disposition home or self-care (01) | LOC: HBO 00:54 | DX: M27.2 Inflammatory conditions of jaws (principal) | CPT/HCPCS: G0277 ==

== ENCOUNTER 2022-02-13 01:24 | Day surgery (SDC) | payer OTHER | END 2022-02-13 23:22 | disposition home or self-care (01) | LOC: HBO 01:24 | PROC: 5A05121 Extracorporeal Hyperbaric Oxygenation, Intermittent (ICD-10-PCS; principal; 2022-02-13) | DX: M27.2 Inflammatory conditions of jaws (principal) | CPT/HCPCS: G0277 ==

== ENCOUNTER 2022-02-17 00:18 | Day surgery (SDC) | payer OTHER | END 2022-02-18 00:55 | disposition home or self-care (01) | LOC: HBO 00:18 | PROC: 5A05121 Extracorporeal Hyperbaric Oxygenation, Intermittent (ICD-10-PCS; principal; 2022-02-17) | DX: M86.68 Other chronic osteomyelitis, other site (principal); M27.2 Inflammatory conditions of jaws | CPT/HCPCS: G0277 ==

== ENCOUNTER 2022-02-18 04:09 | Day surgery (SDC) | payer OTHER | END 2022-02-18 23:30 | disposition home or self-care (01) | LOC: HBO 04:09 | DX: M27.2 Inflammatory conditions of jaws (principal) ==

== ENCOUNTER 2022-02-19 01:49 | Day surgery (SDC) | payer OTHER | END 2022-02-19 23:50 | disposition home or self-care (01) | LOC: HBO 01:49 | DX: M27.2 Inflammatory conditions of jaws (principal) | CPT/HCPCS: G0277 ==

== ENCOUNTER 2022-02-20 02:49 | Day surgery (SDC) | payer OTHER | END 2022-02-20 23:37 | disposition home or self-care (01) | LOC: HBO 02:49 | DX: M27.2 Inflammatory conditions of jaws (principal); M86.68 Other chronic osteomyelitis, other site | CPT/HCPCS: G0277 ==

== ENCOUNTER 2022-02-21 02:11 | Day surgery (SDC) | payer OTHER | END 2022-02-21 23:54 | disposition home or self-care (01) | LOC: HBO 02:11 | DX: M27.2 Inflammatory conditions of jaws (principal); M86.68 Other chronic osteomyelitis, other site | CPT/HCPCS: G0277 ==

== ENCOUNTER 2022-02-24 01:15 | Day surgery (SDC) | payer OTHER | END 2022-02-24 23:24 | disposition home or self-care (01) | LOC: HBO 01:15 | DX: M86.68 Other chronic osteomyelitis, other site (principal); M27.2 Inflammatory conditions of jaws | CPT/HCPCS: G0277 ==

== ENCOUNTER 2022-02-25 01:45 | Day surgery (SDC) | payer OTHER | END 2022-02-25 23:59 | disposition home or self-care (01) | LOC: HBO 01:45 | DX: M86.68 Other chronic osteomyelitis, other site (principal); M27.2 Inflammatory conditions of jaws | CPT/HCPCS: G0277 ==

== ENCOUNTER 2022-02-26 03:21 | Day surgery (SDC) | payer OTHER | END 2022-02-26 23:20 | disposition home or self-care (01) | LOC: HBO 03:21 | DX: M86.68 Other chronic osteomyelitis, other site (principal); M27.2 Inflammatory conditions of jaws | CPT/HCPCS: G0277 ==

== ENCOUNTER 2022-02-27 00:12 | Day surgery (SDC) | payer OTHER | END 2022-02-27 23:17 | disposition home or self-care (01) | LOC: HBO 00:12 | DX: M27.2 Inflammatory conditions of jaws (principal); M86.68 Other chronic osteomyelitis, other site | CPT/HCPCS: G0277 ==

== ENCOUNTER 2022-02-28 00:49 | Day surgery (SDC) | payer OTHER | END 2022-02-28 23:10 | disposition home or self-care (01) | LOC: HBO 00:49 | DX: M27.2 Inflammatory conditions of jaws (principal) | CPT/HCPCS: G0277 ==

== ENCOUNTER 2022-03-04 00:53 | Day surgery (SDC) | payer OTHER | END 2022-03-04 23:58 | disposition home or self-care (01) | LOC: HBO 00:53 | DX: M27.2 Inflammatory conditions of jaws (principal); M86.68 Other chronic osteomyelitis, other site | CPT/HCPCS: G0277 ==

== ENCOUNTER 2022-03-05 06:27 | Day surgery (SDC) | payer OTHER | END 2022-03-05 23:39 | disposition home or self-care (01) | LOC: HBO 06:27 | DX: M27.2 Inflammatory conditions of jaws (principal); M86.68 Other chronic osteomyelitis, other site | CPT/HCPCS: G0277 ==

== ENCOUNTER 2022-03-06 00:18 | Day surgery (SDC) | payer OTHER | END 2022-03-06 23:10 | disposition home or self-care (01) | LOC: HBO 00:18 → WOUND 13:07 → HBO 13:13 | DX: M27.2 Inflammatory conditions of jaws (principal); M86.68 Other chronic osteomyelitis, other site | CPT/HCPCS: G0277 ==

== ENCOUNTER 2022-03-11 08:24 | Day surgery (SDC) | payer OTHER | END 2022-03-11 23:18 | disposition home or self-care (01) | LOC: HBO 08:24 → WOUND 03-12 14:18 | DX: M27.2 Inflammatory conditions of jaws (principal); M86.68 Other chronic osteomyelitis, other site | CPT/HCPCS: G0277 ==

== ENCOUNTER 2022-03-12 09:16 | Day surgery (SDC) | payer OTHER | END 2022-03-12 23:46 | disposition home or self-care (01) | LOC: WOUND 09:16 → HBO 09:16 → WOUND 23:46 | DX: M86.68 Other chronic osteomyelitis, other site (principal); M27.2 Inflammatory conditions of jaws | CPT/HCPCS: G0277 ==

== ENCOUNTER 2022-03-13 01:53 | Day surgery (SDC) | payer OTHER | END 2022-03-13 23:29 | disposition home or self-care (01) | LOC: HBO 01:53 | DX: M27.2 Inflammatory conditions of jaws (principal) | CPT/HCPCS: G0277 ==

== ENCOUNTER 2022-03-17 00:22 | Day surgery (SDC) | payer OTHER | END 2022-03-17 23:40 | disposition home or self-care (01) | LOC: HBO 00:22 | DX: M27.2 Inflammatory conditions of jaws (principal) | CPT/HCPCS: G0277 ==

== ENCOUNTER 2022-03-28 02:19 | Day surgery (SDC) | payer OTHER | END 2022-03-29 00:50 | disposition home or self-care (01) | LOC: HBO 02:19 | DX: M27.2 Inflammatory conditions of jaws (principal); M86.68 Other chronic osteomyelitis, other site | CPT/HCPCS: G0277; G0463 ==

== ENCOUNTER 2022-03-31 00:52 | Day surgery (SDC) | payer OTHER | END 2022-03-31 23:04 | disposition home or self-care (01) | LOC: HBO 00:52 | DX: M27.2 Inflammatory conditions of jaws (principal); M86.68 Other chronic osteomyelitis, other site | CPT/HCPCS: G0277 ==

== ENCOUNTER 2022-04-01 02:23 | Day surgery (SDC) | payer OTHER | END 2022-04-01 22:56 | disposition home or self-care (01) | LOC: HBO 02:23 | DX: M27.2 Inflammatory conditions of jaws (principal); M86.68 Other chronic osteomyelitis, other site | CPT/HCPCS: G0277 ==

== ENCOUNTER 2022-04-02 01:49 | Day surgery (SDC) | payer OTHER | END 2022-04-02 23:43 | disposition home or self-care (01) | LOC: HBO 01:49 | DX: M27.2 Inflammatory conditions of jaws (principal); M86.68 Other chronic osteomyelitis, other site | CPT/HCPCS: G0277 ==

== ENCOUNTER 2022-04-04 02:13 | Day surgery (SDC) | payer OTHER | END 2022-04-04 23:59 | disposition home or self-care (01) | LOC: HBO 02:13 | DX: M27.2 Inflammatory conditions of jaws (principal); M86.68 Other chronic osteomyelitis, other site | CPT/HCPCS: A9270; G0277 ==

== ENCOUNTER 2022-04-07 01:29 | Day surgery (SDC) | payer OTHER | END 2022-04-07 23:34 | disposition home or self-care (01) | LOC: HBO 01:29 | DX: M27.2 Inflammatory conditions of jaws (principal); M86.68 Other chronic osteomyelitis, other site | CPT/HCPCS: A9270; G0463 ==

== ENCOUNTER 2022-04-08 02:18 | Day surgery (SDC) | payer OTHER | END 2022-04-08 22:47 | disposition home or self-care (01) | LOC: HBO 02:18 | DX: M27.2 Inflammatory conditions of jaws (principal); M86.68 Other chronic osteomyelitis, other site | CPT/HCPCS: G0277 ==

== ENCOUNTER 2022-04-09 04:11 | Day surgery (SDC) | payer OTHER | END 2022-04-09 22:59 | disposition home or self-care (01) | LOC: HBO 04:11 | DX: M27.2 Inflammatory conditions of jaws (principal); M86.68 Other chronic osteomyelitis, other site | CPT/HCPCS: G0277 ==

== ENCOUNTER 2022-04-11 02:34 | Day surgery (SDC) | payer OTHER | END 2022-04-11 23:43 | disposition home or self-care (01) | LOC: HBO 02:34 | DX: M27.2 Inflammatory conditions of jaws (principal); M86.68 Other chronic osteomyelitis, other site | CPT/HCPCS: G0277 ==

== ENCOUNTER 2022-04-16 02:26 | Day surgery (SDC) | payer OTHER | END 2022-04-16 23:02 | disposition home or self-care (01) | LOC: HBO 02:26 | DX: M27.2 Inflammatory conditions of jaws (principal); M86.68 Other chronic osteomyelitis, other site | CPT/HCPCS: G0277 ==

== ENCOUNTER 2022-04-17 01:39 | Day surgery (SDC) | payer OTHER | END 2022-04-17 23:05 | disposition home or self-care (01) | LOC: HBO 01:39 | DX: M27.2 Inflammatory conditions of jaws (principal); M86.68 Other chronic osteomyelitis, other site | CPT/HCPCS: G0277 ==

== ENCOUNTER 2022-04-18 00:33 | Day surgery (SDC) | payer OTHER | END 2022-04-18 23:35 | disposition home or self-care (01) | LOC: HBO 00:33 | DX: M27.2 Inflammatory conditions of jaws (principal); M86.68 Other chronic osteomyelitis, other site | CPT/HCPCS: G0277 ==

== ENCOUNTER 2022-04-22 01:37 | Day surgery (SDC) | payer OTHER | END 2022-04-22 23:45 | disposition home or self-care (01) | LOC: HBO 01:37 | DX: M27.2 Inflammatory conditions of jaws (principal); M86.68 Other chronic osteomyelitis, other site | CPT/HCPCS: G0277 ==

== ENCOUNTER 2022-04-23 02:06 | Day surgery (SDC) | payer OTHER | END 2022-04-23 22:56 | disposition home or self-care (01) | LOC: HBO 02:06 | DX: M27.2 Inflammatory conditions of jaws (principal); M86.68 Other chronic osteomyelitis, other site | CPT/HCPCS: G0277 ==

== ENCOUNTER 2022-04-24 03:22 | Day surgery (SDC) | payer OTHER | END 2022-04-24 23:32 | disposition home or self-care (01) | LOC: HBO 03:22 | DX: M27.2 Inflammatory conditions of jaws (principal); M86.68 Other chronic osteomyelitis, other site | CPT/HCPCS: G0277 ==

== ENCOUNTER 2022-04-25 00:46 | Day surgery (SDC) | payer OTHER | END 2022-04-25 23:43 | disposition home or self-care (01) | LOC: HBO 00:46 | DX: M27.2 Inflammatory conditions of jaws (principal); M86.68 Other chronic osteomyelitis, other site | CPT/HCPCS: G0277 ==

== ENCOUNTER 2022-04-28 00:16 | Day surgery (SDC) | payer OTHER | END 2022-04-28 22:55 | disposition home or self-care (01) | LOC: HBO 00:16 | DX: M27.2 Inflammatory conditions of jaws (principal); M86.68 Other chronic osteomyelitis, other site | CPT/HCPCS: G0277 ==

== ENCOUNTER 2022-04-29 02:58 | Day surgery (SDC) | payer OTHER | END 2022-04-29 23:34 | disposition home or self-care (01) | LOC: HBO 02:58 | DX: M27.2 Inflammatory conditions of jaws (principal); M86.68 Other chronic osteomyelitis, other site | CPT/HCPCS: G0277 ==

== ENCOUNTER 2022-04-30 01:31 | Day surgery (SDC) | payer OTHER | END 2022-04-30 23:50 | disposition home or self-care (01) | LOC: HBO 01:31 | DX: M27.2 Inflammatory conditions of jaws (principal); M86.68 Other chronic osteomyelitis, other site | CPT/HCPCS: G0277 ==

== ENCOUNTER 2022-05-01 03:52 | Day surgery (SDC) | payer OTHER | END 2022-05-01 23:07 | disposition home or self-care (01) | LOC: HBO 03:52 | DX: M27.2 Inflammatory conditions of jaws (principal); M86.68 Other chronic osteomyelitis, other site | CPT/HCPCS: G0277 ==

== ENCOUNTER 2022-05-05 02:58 | Day surgery (SDC) | payer OTHER | END 2022-05-05 23:41 | disposition home or self-care (01) | LOC: HBO 02:58 | DX: M27.2 Inflammatory conditions of jaws (principal); M86.68 Other chronic osteomyelitis, other site | CPT/HCPCS: G0277 ==

== ENCOUNTER 2022-05-06 03:58 | Day surgery (SDC) | payer OTHER | END 2022-05-06 23:25 | disposition home or self-care (01) | LOC: HBO 03:58 | DX: M27.2 Inflammatory conditions of jaws (principal); M86.68 Other chronic osteomyelitis, other site | CPT/HCPCS: G0277 ==

== ENCOUNTER 2022-05-09 00:44 | Day surgery (SDC) | payer OTHER | END 2022-05-09 23:26 | disposition home or self-care (01) | LOC: HBO 00:44 | DX: M27.2 Inflammatory conditions of jaws (principal); M86.68 Other chronic osteomyelitis, other site | CPT/HCPCS: G0277 ==

== ENCOUNTER 2022-05-12 01:40 | Day surgery (SDC) | payer OTHER | END 2022-05-12 23:41 | disposition home or self-care (01) | LOC: HBO 01:40 | DX: M27.2 Inflammatory conditions of jaws (principal); M86.68 Other chronic osteomyelitis, other site | CPT/HCPCS: G0277 ==

== ENCOUNTER 2022-05-13 08:00 | Day surgery (SDC) | payer OTHER | END 2022-05-13 23:59 | disposition home or self-care (01) | LOC: HBO 08:00 | DX: M27.2 Inflammatory conditions of jaws (principal); M86.68 Other chronic osteomyelitis, other site | CPT/HCPCS: G0277 ==

== ENCOUNTER 2022-05-15 00:50 | Day surgery (SDC) | payer OTHER | END 2022-05-15 22:44 | disposition home or self-care (01) | LOC: HBO 00:50 | DX: M27.2 Inflammatory conditions of jaws (principal); M86.68 Other chronic osteomyelitis, other site | CPT/HCPCS: G0277 ==

== ENCOUNTER 2022-05-16 00:33 | Day surgery (SDC) | payer OTHER | END 2022-05-16 22:56 | disposition home or self-care (01) | LOC: HBO 00:33 | DX: M27.2 Inflammatory conditions of jaws (principal); M86.68 Other chronic osteomyelitis, other site | CPT/HCPCS: G0277 ==

== ENCOUNTER 2022-05-19 01:49 | Day surgery (SDC) | payer OTHER | END 2022-05-19 23:33 | disposition home or self-care (01) | LOC: WOUND 01:49 | DX: M27.2 Inflammatory conditions of jaws (principal); M86.68 Other chronic osteomyelitis, other site | CPT/HCPCS: G0463 ==

== ENCOUNTER 2022-05-19 01:53 | Day surgery (SDC) | payer OTHER | END 2022-05-19 23:33 | disposition home or self-care (01) | LOC: HBO 01:53 | DX: M27.2 Inflammatory conditions of jaws (principal); M86.68 Other chronic osteomyelitis, other site | CPT/HCPCS: G0277 ==

== ENCOUNTER 2022-05-20 03:24 | Day surgery (SDC) | payer OTHER | END 2022-05-20 22:47 | disposition home or self-care (01) | LOC: HBO 03:24 | DX: M27.2 Inflammatory conditions of jaws (principal); M86.68 Other chronic osteomyelitis, other site | CPT/HCPCS: A9270; G0277 ==

== ENCOUNTER 2022-06-19 09:44 | Emergency (ER) | payer OTHER ==
[~2022-06-19] VITALS: Ht 180.3 cm; Wt 77.1 kg
[2022-06-19 10:51] LABS: Albumin, Blood 3.4 g/dL (3.4-5.0); Albumin/Globulin Ratio 0.8 (0.8-1.8); Bilirubin, Total 0.5 mg/dL (0.1-1.0); Bun/Creatinine Ratio 20.3 (12.0-20.0); Calcium, Blood 8.9 mg/dL (8.5-10.1); Creatinine, Blood 0.69 mg/dL (0.60-1.20); Globulin, Blood 4.4 g/dL (2.2-4.0); Potassium, Blood 4.7 mmol/L (3.5-5.5); Total Protein, Blood 7.8 g/dL (6.4-8.2)
[2022-06-19 11:06] LABS: BASOPHILS ABSOLUTE AUTO 0.07 K/mm3 (0.00-0.23); BASOPHILS PERCENT AUTO 1 % (0-2); EOSINOPHILS ABSOLUTE AUTO 0.14 K/mm3 (0.00-0.68); EOSINOPHILS PERCENT AUTO 2 % (0-6); Hemoglobin 14.7 g/dL (13.5-17.5); IMMATURE GRAN ABSOLUTE AUTO 0.03 K/mm3 (0.00-0.10); IMMATURE GRAN PERCENT AUTO 0 % (0-1); LYMPHOCYTES ABSOLUTE AUTO 2.86 K/mm3 (0.84-5.20); LYMPHOCYTES PERCENT AUTO 32 % (21-46); MONOCYTES PERCENT AUTO 7 % (4-13); Mean Corpuscular HGB 29.8 pg (26.0-34.0); Mean Corpuscular HGB Conc 34.2 g/dL (31.5-36.5); Mean Corpuscular Volume 87 fL (80-100); Mean Platelet Volume 9.4 fL (9.1-12.4); NEUTROPHILS ABSOLUTE AUTO 5.34 K/mm3 (1.96-9.15); NEUTROPHILS PERCENT AUTO 59 % (41-73); Platelet Count 314 K/mm3 (150-400); RDW Coefficient Variation 12.5 % (11.7-14.2); RDW Standard Deviation 39.8 fL (35.1-46.3); RETICULOCYTE COUNT PERCENT 1.02 % (0.50-2.50); Red Blood Cell Count 4.94 M/mm3 (4.30-5.90); White Blood Cell Count 9.04 K/mm3 (4.00-11.30)
== END 2022-06-19 16:50 | disposition home or self-care (01) ==
LOC: ER 09:44
PROVIDERS: Emergency Medicine
DX: M54.50 Low back pain, unspecified (principal); M25.552 Pain in left hip; Z79.899 Other long term (current) drug therapy; Z79.82 Long term (current) use of aspirin
CPT/HCPCS: 36415; 72146; 72148; 73721; 80053; 83605; 85025; 85045; 85651; 86141; J2060

== ENCOUNTER → 2022-06-26 | Outpatient (CLI) | payer OTHER | END | disposition home or self-care (01) | LOC: LAB 14:00 → LAB SHORT 14:00 | DX: M27.2 Inflammatory conditions of jaws (principal) | CPT/HCPCS: 87070; 87075; 87077; 87147; 87185; 87186; 87205 ==

== ENCOUNTER 2022-10-21 06:24 | Day surgery (SDC) | payer OTHER ==
[~2022-10-21] VITALS: Ht 182 cm; Wt 79.8 kg
[~2022-10-21 06:24] MED LIST changes: +PROP80ER PO
[2022-10-21 06:54] VITALS: BP 149/80
--- NOTE | 2022-10-21 07:03 | NUR ---
Ambulatory in Day Surgery History, Chart, Medications and Allergies reviewed before start of procedure. Pre-Op teaching done. Pt verbalizes understanding.
[2022-10-21 07:54] VITALS: BP 154/97
--- NOTE | 2022-10-21 07:58 | NUR ---
10/21/22 0758 Lay Sánchez NO ANTIBIOTICS GIVEN. SPECIMEN SENT OUT WITH .
== END 2022-10-21 22:48 | disposition home or self-care (01) ==
LOC: ORSCMMR 06:24 → ORD 07:30 → ORSCMMR 22:48
PROVIDERS: Orthopaedic Surgery
PROC: 0S9B3ZZ Drainage of Left Hip Joint, Percutaneous Approach (ICD-10-PCS; principal; 2022-10-21 07:30)
DX: T84.52XD Infection and inflammatory reaction due to internal left hip prosthesis, subsequent encounter (principal); Z79.899 Other long term (current) drug therapy
CPT/HCPCS: J0690; J2795; J7120

== ENCOUNTER → 2022-10-23 | Outpatient (CLI) | payer OTHER | END | disposition home or self-care (01) | LOC: LAB 13:47 → LAB SHORT 13:47 | DX: K52.9 Noninfective gastroenteritis and colitis, unspecified (principal) | CPT/HCPCS: 87015; 87045; 87046; 87205; 87899 ==

== ENCOUNTER 2023-03-09 11:51 | Day surgery (SDC) | payer OTHER | END 2023-03-09 22:52 | disposition home or self-care (01) | LOC: EDSTATUS 11:51 → WOUND 11:51 | DX: M27.2 Inflammatory conditions of jaws (principal); M86.68 Other chronic osteomyelitis, other site | CPT/HCPCS: G0463 ==